=== PATIENT | female | born 1945 | race African-American/Black ===

== ENCOUNTER 2017-01-23 04:06 | Day surgery (SDC) | payer MEDICARE, OTHER ==
[2017-01-17 11:14] LABS: HEMATOCRIT 41.3 % (36.0-48.0); HEMOGLOBIN 13.9 g/dL (12.0-16.0)
[2017-01-17 11:32] LABS: CALCIUM, SERUM 8.7 MG/DL (8.5-10.4); CHLORIDE, SERUM 110 MMOL/L (96-112); CO2 (CARBON DIOXIDE) 27 MMOL/L (24-34); CREATININE 1.04 MG/DL (0.55-1.02); GFR AFRICAN AMERICAN 63 ML/MIN (>=60); GFR NON AFRICAN AMERICAN 55 ML/MIN (>=60); POTASSIUM, SERUM 3.3 MMOL/L (3.5-5.3); SODIUM, SERUM 144 MMOL/L (135-148)
[2017-01-17 11:35] LABS: BUN (BLOOD UREA NITROGEN) 17 MG/DL (6-23); GLUCOSE, SERUM 128 MG/DL (60-99)
--- NOTE | ~2017-01-23 | OP ---
Record Of Operation [facility] [address] [place]. [address] NAME: AJCK SHAHID : 49 STATUS : [facility]#: [id number] AGE: 71 ADM/REG DATE : 01/23/17 MR#: [id number] REPORT SERV DATE: 01/23/17 DICTATED BY: DINORA MORAN DATE: 01/23/17 REPORT STATUS : Draft TRANSCRIBED BY: SYD DATE: 01/23/17 DATE OF PROCEDURE: 01/23/2017 PREOPERATIVE DIAGNOSIS: Right rotator cuff tear, biceps tendinitis, impingement, acromioclavicular pain. POSTOPERATIVE DIAGNOSIS: Right rotator cuff tear, biceps tendinitis, impingement, acromioclavicular pain. PROCEDURE: Right rotator cuff repair, biceps tenodesis, subacromial decompression, AC resection, extensive debridement. COMPLICATIONS: None. ANESTHESIA: General endotracheal with regional block per Anesthesia. INDICATIONS: This 71-year-old female presented with severe shoulder pain. She had a full- thickness rotator cuff tear and had failed nonoperative management. She wished to proceed with operative intervention after discussion of above. PROCEDURE IN DETAIL: The patient induced in supine position. She was taken to the beach- chair position with care to maintain the cervical lordosis. A time-out protocol was enforced. Ancef was administered. Posterolateral portal was created for diagnostic arthroscopy, which revealed well-preserved cartilaginous surfaces, severe tearing, and maceration of the biceps tendon with hourglassing and some mild subluxation. Full-thickness tear of the supraspinatus with an 80% tear of the infraspinatus, but the bursal side was intact. Type 3 acromion and severe osteoarthritis of the AC joint. Extensive debridement: A 5.5 cannula was localized with an outside-in spinal technique. We debrided the fibrillating collagenous or collagen from the biceps. We transected the biceps root and allowed it to retract. We debrided the superior labrum of synovitis superiorly, posteriorly, and anteriorly. We took down the tendon remnants, which were on the greater tuberosity and burred it down to a bleeding bony surface. We performed a microfracture of the tuberosity to optimize healing. We freshened the tendon ends as this was a bilaminar tear. Subacromial decompression: The arthroscopic cannula was then removed from the posterior shoulder and redirected in the subacromial space. The metal trocar was inserted and the cannula was advanced out the anterior superior portal creating an outflow portal with outside in technique. A lateral portal was then created after spinal needle localization and a skin incision was made with an 11-blade. A large 5-5 shaver was then introduced into the joint from lateral and its tip was well visualized in the bursa. A bursectomy was performed going from lateral to medial allowing visualization of the rotator cuff and undersurface of the acromion. Coagulation was achieved with a 90-degree electrothermal Record Of Operation [facility] [address] [facility] [place]. [address] NAME: JACK SHAHID : 49 STATUS : [facility]#: [id number] AGE: 71 ADM/REG DATE : 01/23/17 MR#: [id number] REPORT SERV DATE: 01/23/17 DICTATED BY: DINORA MORAN DATE: 01/23/17 REPORT STATUS : Draft TRANSCRIBED BY: SYD DATE: 01/23/17 device and the undersurface of the CA ligament was recessed with the tissue ablator. Bur was then introduced laterally and acromioplasty was performed smoothing the acromion from a type I morphology. This was begun laterally and advanced medially. The AC joint was then checked for spurs and these were smoothed. The soft tissue decompression was carried out anteriorly, laterally and superiorly. The scope was then withdrawn and placed into the lateral portal and the cutting-block technique was used with the instrumentation from posterior to assure that a perfect acromioplasty had been performed. Decompression then underwent the final check by forward flexing the arm again to check for impingement. Cuff repair: We placed two helical anal anchors medially, one double loaded and one triple loaded on the medial row. We microfractured the tuberosity. We placed mattress sutures through the cuff and tied these medially. We then used two SwiveLocks laterally for a four anchor transosseous equivalent cuff repair. Biceps tenodesis: We then forward flexed, externally rotated the arm. We opened up the biceps sheath and extensively debrided the synovitis from around the biceps tendon, and in the suprapectoral location, we placed a double loaded Lupine anchor and then tenodesed the biceps with Bravo-Artis sutures in the biceps groove. Attention was then turned to the resection of the AC joint. Looking from posteriorly, the compartment of the AC joint was entered and a laterally placed tissue ablator was utilized to debride fat and coagulate bleeders under the AC joint. A bur was introduced and the undersurface of the AC joint was co-planed from lateral to medial. Palpation on the clavicle allowed visualization of the AC joint and disc. A spinal needle directed from anteriorly allowed localization of the AC joint and a 12-flute bur was introduced anteriorly. This bur was utilized to resect approximately 1 cm on the clavicle from anterior to posterior. 2mm were then taken off the acromial side. Care was taken to insure that a level cut was made at the anterior and posterior junctions of the AC joint and the anterior and posterior AC ligaments were recessed prior to this with a tissue ablator preserving their structure. The scope was then placed in the lateral portal and again the AC joint was visualized anteriorly and posteriorly with inferiorly directed pressure insuring an adequate superior decompression. The posterior aspect of the joint was then checked with a scope in the anterior portal and an accessory posterior portal was created and utilized to recess the posterior spur with a bur. No yiuv-[id number]-[id number] contact at the AC joint was present after resection. Scope was withdrawn. The portals were closed Monocryl and Steri-Strips were applied. The patient tolerated the procedure well and was sent to PACU in stable condition. POSTOPERATIVE PLAN: Large cuff protocol. BSS/MODL Dinora Moran M.D. Record Of Operation [address] [address] NAME: JACK SHAHID : 49 STATUS : [facility] PAT#: [id number] AGE: 71 ADM/REG DATE : 01/23/17 MR#: [id number] REPORT SERV DATE: 01/23/17 DICTATED BY: DINORA MORAN DATE: 01/23/17 REPORT STATUS : Draft TRANSCRIBED BY: MODL DATE: 01/23/17 / [id number] CC: Daniel Fitzpatrick N.P.
[~2017-01-23 04:06] MED LIST: *UNABLE1; ACCUNEB INH; ACET500CAP PO; ADVAIR250 INH; ANOROELLIPTA INH; AVELOX400 PO; BENTYL10 PO; CALCIUM PO; CALTRA600D PO; CALTRAT600 PO; CARDCD180 PO; DIL2TAB PO; DIL4TAB PO; DSS PO; DULERA 200 MCG/13 GM INH; DUONEB INH; ENDOCET1 TA1 PO; ENDOCET1 TAB PO; FLEX PO; FLONASE NAS; FLUTICASONE INH; GABAPENTIN; HCTZ12.5 PO; HYDROCHLOROT12.5 MG PO; HYZAAR 50/12.51 TAB PO; IRON325 MG PO; KAPIDEX60 MG PO; LEVAQUIN750 MG PO; LOM PO; METHOC500B; METHOC500B OR; METHOC500B PO; METHOC750B PO; MICRO-K10 MEQ PO; MUCINEX1200 MG PO; MULTIVITAMI1 PO; NEUR100 PO; NEUR300 PO; NEXIUM40 PO; NORV10 PO; NORV5 PO; OTC CALCIUM PO; OXECTA7.5 MG PO; PCET PO; PR25 PO; PRILO PO; PRILOSEC40 MG PO; PROAIR HFA INH; REG PO; REG5 PO; RX CREAM; SALMETEROL INH; SONATA10 MG PO; SPIRIVA INH; SUCR PO; T PO; TESS PO; TRAZ50 PO; ULTRAM50 PO; VENTOLIN HFA INH; VITD PO; VOLTAREN1 % TOP; ZANTAC150 MG PO; ZOFRANODT8 PO; ZOVI200CAP PO; [UNRECOGNIZED DRUG - OTHER] IV; [UNRECOGNIZED DRUG - REMARK]; [UNRECOGNIZED DRUG - REMARK] INH; [UNRECOGNIZED DRUG - REMARK] PO
[2017-04-19] MEDS ORDERED: TESSALON200 MG PO (01:46)
[2017-04-19] MEDS ORDERED: DUONEB INH (01:46)
[2017-04-19] MEDS ORDERED: DIL2TAB PO (01:47)
[2017-04-19] MEDS ORDERED: PROAIR HFA INH (01:49)
[2017-04-19] MEDS ORDERED: CARAFATE (01:51)
[2017-04-19] MEDS ORDERED: ANOROELLIPTA INH (01:51)
[2017-04-19] MEDS ORDERED: HYZAAR 50/12.51 TAB PO (01:52)
[2017-04-19] MEDS ORDERED: PRILOSEC40 MG PO (01:53)
[2017-04-19] MEDS ORDERED: ZOL100 PO (01:53)
[2017-04-19] MEDS ORDERED: NEUR300 PO (01:53)
[2017-04-19] MEDS ORDERED: *UNABLE1 (01:54)
[2017-04-20] MEDS ORDERED: ZOFRAN4 PO (10:30)
[2017-04-20] MEDS ORDERED: PR25 PO (10:31)
[2017-04-20] MEDS ORDERED: TRAZ50 PO (10:31)
[2017-04-28] MEDS ORDERED: FLAG500TAB PO (11:57)
[2017-04-28] MEDS ORDERED: CIP5 PO (11:57)
[2017-04-28] MEDS ORDERED: PEPTO BISMOL LIQ1 ML PO (11:58)
[2017-04-28] MEDS ORDERED: LOM PO (11:59)
== END 2017-01-23 11:17 | disposition home or self-care (01) ==
LOC: SDC 04:06
PROVIDERS: Orthopaedic Surgery Sports Medicine
PROC: 0LQ14ZZ Repair Right Shoulder Tendon, Percutaneous Endoscopic Approach (ICD-10-PCS; principal; 2017-01-23 05:45)
PROC: 0LS14ZZ Reposition Right Shoulder Tendon, Percutaneous Endoscopic Approach (ICD-10-PCS; 2017-01-23 05:45)
DX: M75.101 Unspecified rotator cuff tear or rupture of right shoulder, not specified as traumatic (principal); M75.21 Bicipital tendinitis, right shoulder; M25.811 Other specified joint disorders, right shoulder; I10 Essential (primary) hypertension; J44.9 Chronic obstructive pulmonary disease, unspecified; J45.909 Unspecified asthma, uncomplicated; M19.90 Unspecified osteoarthritis, unspecified site; K21.9 Gastro-esophageal reflux disease without esophagitis; K31.84 Gastroparesis; Z90.710 Acquired absence of both cervix and uterus; Z98.890 Other specified postprocedural states; B00.9 Herpesviral infection, unspecified; F32.9 Major depressive disorder, single episode, unspecified; M81.0 Age-related osteoporosis without current pathological fracture; M41.9 Scoliosis, unspecified; Z90.49 Acquired absence of other specified parts of digestive tract; K58.9 Irritable bowel syndrome, unspecified; F12.90 Cannabis use, unspecified, uncomplicated; F17.210 Nicotine dependence, cigarettes, uncomplicated; Z88.0 Allergy status to penicillin; Z88.5 Allergy status to narcotic agent; Z88.6 Allergy status to analgesic agent; Z79.899 Other long term (current) drug therapy; Z79.51 Long term (current) use of inhaled steroids
CPT/HCPCS: 80048; 85014; 85018; 85025; 93005; C1713; J0330; J0690; J2250; J2710; J2795; J3010

== ENCOUNTER 2017-01-25 21:39 | Inpatient (IN) | payer MEDICARE, OTHER ==
--- NOTE | ~2017-01-25 | HP ---
History And Physical [address] [place]. [address] NAME: JACK SHAHID : 49 STATUS : [facility] PAT#: [id number] AGE: 71 ADM/REG DATE : 01/25/17 MR#: [id number] REPORT SERV DATE: 01/26/17 DICTATED BY: PALMA MCMAHAN DATE: 01/26/17 REPORT STATUS : Draft TRANSCRIBED BY: MODGavin DATE: 01/26/17 DATE OF ADMISSION: 01/25/2017 CHIEF COMPLAINT: A 71-year-old female presenting with intractable nausea and vomiting, and evidence of hypokalemia. HISTORY OF PRESENTING ILLNESS: The patient's history was obtained through careful interview with the patient and daughter coupled with review of [facility] and [facility] medical records. The patient on 01/23/2017, underwent a right rotator cuff repair, seemed to recover well and was able to be discharged on the same day. When she returned home, she began to develop increasing nausea, vomiting, and for about 24 hours had diarrhea as well. She describes a polyuria, but inability to take food in. Her bowel movements have improved in the last 24 hours, but she has had persistent nausea and vomiting. Has not had any real food intake in about 48 hours now. She was staggering, weak, lightheaded, and then the family realized she had to come into the hospital for further evaluation. She has no residual right shoulder pain after her surgery. She denies any abdominal pain at this time. She has a slight nonproductive cough and shortness of breath. No chest pain. At this time, she is complaining of no pain at all. REVIEW OF SYSTEMS: Otherwise, a 14-point review of systems was obtained and was negative. PAST MEDICAL HISTORY: 1. Peptic ulcer disease seen by Dr. Keyes. 2. Severe COPD. 3. Coronary artery disease. 4. Elevated cholesterol. 5. Scoliosis. 6. Genital herpes. 7. Depression. 8. Seizure disorder. 9. Fibrocystic breast disease. PAST SURGICAL HISTORY: 1. Hysterectomy with oophorectomy. 2. A partial gastric resection for peptic ulcer disease. 3. Appendectomy. History And Physical [address] [address] NAME: JACK SHAHID : 49 STATUS : [facility] PAT#: [id number] AGE: 71 ADM/REG DATE : 01/25/17 MR#: [id number] REPORT SERV DATE: 01/26/17 DICTATED BY: PALMA MCMAHAN DATE: 01/26/17 REPORT STATUS : Draft TRANSCRIBED BY: SYD DATE: 01/26/17 4. Lumbar spine surgery. 5. Cervical spine surgery. 6. Right rotator cuff repair. ALLERGIES: TO PENICILLIN, ASPIRIN, AND CODEINE. SOCIAL HISTORY: Has been living with her grandson. She quit smoking. No alcohol abuse. She has a history of smoking occasional marijuana. She has a previous history of cocaine abuse, but has quit. She has total of three children. She is . She previously worked in a day care. FAMILY HISTORY: Father with cancer. Mother with stroke. Brother with COPD. Strong family history of heart disease as well. CURRENT MEDICATIONS: 1. Calcium. 2. Vitamin D. 3. Neurontin 300 mg p.o. t.i.d. 4. Dilaudid 2 mg to 4 mg p.o. q.4 hours p.r.n. 5. Losartan/hydrochlorothiazide 50/12.5 mg p.o. daily. 6. Omeprazole 40 mg daily. 7. Zoloft 100 mg daily. 8. Sucralfate 1 g before each meal and at bedtime. 9. Anoro Ellipta inhale daily. PHYSICAL EXAMINATION: VITAL SIGNS: Temperature 97.7, pulse 88, blood pressure 187/101, respiratory rate 16, and O2 saturation 95% on room air. GENERAL: An ill-appearing female, in evidence of distress secondary to nausea. HEENT: Pupils equal, round, and reactive to light. No conjunctival pallor. No scleral icterus. Nares are patent. Oropharynx is clear of obstruction. Very dry mucous membranes. NECK: Trachea midline. No thyromegaly. LYMPH: No cervical lymphadenopathy. No supraclavicular lymphadenopathy. RESPIRATORY: Clear to auscultation at bases. No wheezes, rales, or rhonchi. Normal respiratory effort. CARDIOVASCULAR: Regular rate and rhythm. No murmurs, rubs, or gallops. No current extremity edema is appreciated. ABDOMEN: Quite distended by exam with tympanic resonance, diminished bowel tones, but nontender throughout examination. No hepatosplenomegaly. DERMATOLOGICAL: Warm and dry extremities. No pallor. No cyanosis. PSYCHIATRIC: Normal affect. Good mood. Alert and oriented x3. LABORATORY DATA: White blood cell count 13.4, hemoglobin 15, hematocrit 42, and platelets 236. Sodium 140, potassium 2.8, chloride 101, bicarb 18, BUN 14, creatinine 1.0, and glucose 77. History And Physical [address] [address] NAME: JACK SHAHID : 49 STATUS : [facility] PAT#: [id number] AGE: 71 ADM/REG DATE : 01/25/17 MR#: [id number] REPORT SERV DATE: 01/26/17 DICTATED BY: PALMA MCMAHAN DATE: 01/26/17 REPORT STATUS : Draft TRANSCRIBED BY: SYD DATE: 01/26/17 Liver enzymes within normal limits. Urinalysis negative for infection. ASSESSMENT AND PLAN: 1. Intractable vomiting because of distended abdomen and elevated white blood cell count, I would like to check a CT scan of the abdomen and pelvis. For now we will provide supportive care. 2. Hypokalemia. We will replace potassium. Check magnesium. Hold hydrochlorothiazide. Check telemetry. 3. Chronic obstructive pulmonary disease. Place on Duo nebulizers. KAITL/SYD Palma Mcmahan M.D. / [id number] CC: Allan Lo Jr, MD Jimmy Davis, M.D.
--- NOTE | ~2017-01-25 | DS ---
Discharge Summary [facility] [address] [place]. [address] NAME: JACK SHAHID : 49 STATUS : DIS IN PAT#: [id number] AGE: 71 ADM/REG DATE : 01/26/17 MR#: [id number] REPORT SERV DATE: 01/28/17 DICTATED BY: EL SIERRA DATE: 01/27/17 REPORT STATUS : Draft TRANSCRIBED BY: MODL DATE: 01/27/17 ADMISSION DATE: 01/26/2017 DISCHARGE DATE: 01/27/2017 PRINCIPAL DIAGNOSES: Intractable vomiting due to metabolic acidosis due to starvation ketosis. Also hyperkalemia, COPD, and recent shoulder surgery. HISTORY OF PRESENT ILLNESS: Please see Dr. Maurice's dictation on 01/25/2017. HOSPITAL COURSE: Admitted with intractable nausea and vomiting associated with a gastroenteritis episode which occurred following a shoulder surgery. In any event, she had a negligible p.o. for several days. She was found to be very ketotic with a positive anion gap metabolic acidosis, severe hypokalemia. The patient received dextrose, potassium bicarbonate infusion with rapid resolution of the metabolic abnormalities, rapid improvement in her nausea, and ability to advance her diet to the point she was able to be discharged on 01/27/2017, continuing her home medications, following up with Altagracia Ramos in one to two weeks, and home medications were unchanged. BLAYNE/SYD El Sierra M.D. / [id number] CC: Daniel Arias N.P.
[2017-01-25 19:23] LABS: ASCORBIC ACID (UR NOT ORDER) NEG (NEG); BILIRUBIN, URINE NEGATIVE (NEG); ER URINALYSIS TAT 0 Hrs 10 Mins; KETONE, URINE 80 MG/DL (NEG); LEUKOCYTE ESTERASE(NOT OR NEG (NEG); NITRITE (URINE) NEG (NEG); WBC (NOT ORDERED) (RFLEX) < 1 (0-5)
[2017-01-25 19:24] LABS: BASOPHILS 0.1 %; BASOPHILS ABSOLUTE 0.02 10/3/uL (0.0-0.16); EOSINOPHILS 0 %; ER CBC TAT 0 Hrs 11 Mins; HEMOGLOBIN 14.9 g/dL (12.0-16.0); IMMATURE GRANULOCYTES 0.3 %; IMMATURE GRANULOCYTES ABSOLUTE 0.04 10/3/uL (0.0-0.11); LYMPHOCYTES ABSOLUTE 1.21 10/3/uL (0.67-4.30); MANUAL DIFF NO %; MEAN CORPUS HGB CONC 35.5 g/dL (32.0-36.0); MEAN CORPUSCULAR HEMOGLOB 30.5 pg (26.0-34.0); MEAN CORPUSCULAR VOLUME 86.1 fL (80-100); MONOCYTES 6.9 %; MONOCYTES ABSOLUTE 0.92 10/3/uL (0.21-1.20); NEUTROPHILS 83.7 %; NEUTROPHILS ABSOLUTE 11.24 10/3/uL (2.02-8.40); PLATELET COUNT 236 10/3/uL (150-400); RBC DISTRIBUTION WIDTH 14.8 % (12.0-16.0); RED CELL COUNT 4.88 10/6/uL (4.0-5.6); WHITE BLOOD CELLS 13.4 10/3/uL (4.5-10.5)
[2017-01-25 19:41] LABS: ALBUMIN 3.4 G/DL (3.5-5.0); BUN (BLOOD UREA NITROGEN) 14 MG/DL (6-23); CALCIUM, SERUM 9.3 MG/DL (8.5-10.4); CHLORIDE, SERUM 101 MMOL/L (96-112); GFR AFRICAN AMERICAN 67 ML/MIN (>=60); GFR NON AFRICAN AMERICAN 57 ML/MIN (>=60); SGOT(AST) 45 U/L (5-40); SGPT(ALT) 22 U/L (5-65); SODIUM, SERUM 140 MMOL/L (135-148); TOTAL PROTEIN 8.2 G/DL (6.0-8.5)
[2017-01-25 19:45] LABS: A/G RATIO 0.7 (0.7-1.9); ALKALINE PHOSPHATASE 128 U/L (45-117); CO2 (CARBON DIOXIDE) 18 MMOL/L (24-34); GLOBULIN 4.8 G/DL (2.5-4.1); GLUCOSE, SERUM 77 MG/DL (60-99); POTASSIUM, SERUM 2.8 MMOL/L (3.5-5.3); TOTAL BILIRUBIN 0.8 MG/DL (0-1.2)
[2017-01-25] MEDS ORDERED: MINOCIN100 PO (21:48)
[2017-01-25] MEDS ORDERED: HYZAAR 50/12.51 TAB PO (21:49)
[2017-01-25] MEDS ORDERED: ZOL100 PO (21:49)
[2017-01-25] MEDS ORDERED: NEUR300 PO (21:50)
[2017-01-25] MEDS ORDERED: ANOROELLIPTA INH (21:50)
[2017-01-25] MEDS ORDERED: SUCR PO (21:50)
[2017-01-25] MEDS ORDERED: PRILOSEC40 MG PO (21:51)
[2017-01-25] MEDS ORDERED: CALTRA600D PO (21:51)
[2017-01-25] MEDS ORDERED: DIL2TAB PO (21:53)
[2017-01-26 05:43] LABS: BASOPHILS 0.2 %; BASOPHILS ABSOLUTE 0.02 10/3/uL (0.0-0.16); EOSINOPHILS 0 %; HEMATOCRIT 42.7 % (36.0-48.0); HEMOGLOBIN 14.5 g/dL (12.0-16.0); IMMATURE GRANULOCYTES 0.6 %; IMMATURE GRANULOCYTES ABSOLUTE 0.08 10/3/uL (0.0-0.11); LYMPHOCYTES 12.5 %; LYMPHOCYTES ABSOLUTE 1.58 10/3/uL (0.67-4.30); MEAN CORPUSCULAR HEMOGLOB 29.7 pg (26.0-34.0); MEAN CORPUSCULAR VOLUME 87.3 fL (80-100); MONOCYTES 6.6 %; MONOCYTES ABSOLUTE 0.83 10/3/uL (0.21-1.20); NEUTROPHILS 80.1 %; NEUTROPHILS ABSOLUTE 10.11 10/3/uL (2.02-8.40); PLATELET COUNT 231 10/3/uL (150-400); RBC DISTRIBUTION WIDTH 14.9 % (12.0-16.0); RED CELL COUNT 4.89 10/6/uL (4.0-5.6); WHITE BLOOD CELLS 12.6 10/3/uL (4.5-10.5)
[2017-01-26 05:45] LABS: MANUAL DIFF NO %
[2017-01-26 05:47] LABS: INTERNATIONAL NORMAL RATI 1.3 UNITS (-); PARTIAL THROMBO TIME 36.1 SEC (22.5-37.2); PROTIME (NOT ORD) 15.7 SEC (12.0-14.5)
[2017-01-26 06:12] LABS: A/G RATIO 0.7 (0.7-1.9); ALBUMIN 3.1 G/DL (3.5-5.0); BUN (BLOOD UREA NITROGEN) 15 MG/DL (6-23); CALCIUM, SERUM 8.9 MG/DL (8.5-10.4); CHLORIDE, SERUM 106 MMOL/L (96-112); CREATININE 0.98 MG/DL (0.55-1.02); GFR AFRICAN AMERICAN 68 ML/MIN (>=60); GFR NON AFRICAN AMERICAN 59 ML/MIN (>=60); GLOBULIN 4.2 G/DL (2.5-4.1); GLUCOSE, SERUM 81 MG/DL (60-99); SGOT(AST) 33 U/L (5-40); SGPT(ALT) 21 U/L (5-65); SODIUM, SERUM 142 MMOL/L (135-148); TOTAL BILIRUBIN 0.8 MG/DL (0-1.2); TOTAL PROTEIN 7.3 G/DL (6.0-8.5)
[2017-01-26 06:18] LABS: ALKALINE PHOSPHATASE 112 U/L (45-117); CO2 (CARBON DIOXIDE) 14 MMOL/L (24-34); POTASSIUM, SERUM 2.9 MMOL/L (3.5-5.3); TROPONIN I 0.08 NG/ML (<0.05); ULTRASENSITIVE TSH 0.442 MCIU/ML (0.358-3.740)
[2017-01-26 08:50] LABS: ALLENS TEST Pos; CARBOXYHEMOGLOBIN 1.4 % (0-3); HCO3 (ACTUAL BICARBONATE) 16.6 MEQ/L (23-27); HEMOBLOGIN CONTENT 13.8 G/DL (12-16); INSTRUMENT SERIAL # 8087; METHEMOGLOBIN 0.3 % (0-3); O2 CONTENT 18.1 VOL% (18-24); PCO2 (CO2 TENSION) 28 MMHG (35-45); PO2 (O2 TENSION) 75 MMHG (79-93); SAMPLE Arterial; pH 7.39 (7.37-7.43)
[2017-01-26 12:15] LABS: OSMOLALITY, URINE 580 MOSM/KG (50-1200)
[2017-01-26 12:18] LABS: SODIUM, URINE 90 MEQ/L
[2017-01-26 18:18] LABS: BUN (BLOOD UREA NITROGEN) 13 MG/DL (6-23); CALCIUM, SERUM 8.8 MG/DL (8.5-10.4); CHLORIDE, SERUM 106 MMOL/L (96-112); CREATININE 0.91 MG/DL (0.55-1.02); GFR AFRICAN AMERICAN 75 ML/MIN (>=60); GFR NON AFRICAN AMERICAN 64 ML/MIN (>=60); POTASSIUM, SERUM 3.1 MMOL/L (3.5-5.3); SODIUM, SERUM 143 MMOL/L (135-148)
[2017-01-26 18:20] LABS: CO2 (CARBON DIOXIDE) 21 MMOL/L (24-34); GLUCOSE, SERUM 111 MG/DL (60-99)
[2017-01-27 05:18] LABS: BUN (BLOOD UREA NITROGEN) 12 MG/DL (6-23); CALCIUM, SERUM 8.6 MG/DL (8.5-10.4); CHLORIDE, SERUM 103 MMOL/L (96-112); CREATININE 0.93 MG/DL (0.55-1.02); GFR AFRICAN AMERICAN 73 ML/MIN (>=60); GFR NON AFRICAN AMERICAN 63 ML/MIN (>=60); GLUCOSE, SERUM 111 MG/DL (60-99); SODIUM, SERUM 141 MMOL/L (135-148)
[2017-01-27 05:42] LABS: CO2 (CARBON DIOXIDE) 31 MMOL/L (24-34); POTASSIUM, SERUM 2.9 MMOL/L (3.5-5.3)
[2017-01-27 06:50] LABS: BE (BASE EXCESS) 5.7 MEQ/L (0 +/- 2.5); CARBOXYHEMOGLOBIN 1.4 % (0-3); HCO3 (ACTUAL BICARBONATE) 29.7 MEQ/L (23-27); INSTRUMENT SERIAL # 8083; PCO2 (CO2 TENSION) 41 MMHG (35-45); PO2 (O2 TENSION) 64 MMHG (79-93); pH 7.48 (7.37-7.43)
[2017-01-27 06:51] LABS: HEMOBLOGIN CONTENT 13.2 G/DL (12-16); METHEMOGLOBIN 0.1 % (0-3); O2 CONTENT 17.1 VOL% (18-24); OPERATOR ID 17589; SAMPLE Arterial
[2017-01-27] MEDS ORDERED: ZOFRAN4 PO (13:01)
[2017-04-19] MEDS ORDERED: TESSALON200 MG PO (01:46)
[2017-04-19] MEDS ORDERED: DUONEB INH (01:46)
[2017-04-19] MEDS ORDERED: DIL2TAB PO (01:47)
[2017-04-19] MEDS ORDERED: PROAIR HFA INH (01:49)
[2017-04-19] MEDS ORDERED: ANOROELLIPTA INH (01:51)
[2017-04-19] MEDS ORDERED: CARAFATE (01:51)
[2017-04-19] MEDS ORDERED: HYZAAR 50/12.51 TAB PO (01:52)
[2017-04-19] MEDS ORDERED: NEUR300 PO (01:53)
[2017-04-19] MEDS ORDERED: PRILOSEC40 MG PO (01:53)
[2017-04-19] MEDS ORDERED: ZOL100 PO (01:53)
[2017-04-19] MEDS ORDERED: *UNABLE1 (01:54)
[2017-04-20] MEDS ORDERED: ZOFRAN4 PO (10:30)
[2017-04-20] MEDS ORDERED: TRAZ50 PO (10:31)
[2017-04-20] MEDS ORDERED: PR25 PO (10:31)
[2017-04-28] MEDS ORDERED: CIP5 PO (11:57)
[2017-04-28] MEDS ORDERED: FLAG500TAB PO (11:57)
[2017-04-28] MEDS ORDERED: PEPTO BISMOL LIQ1 ML PO (11:58)
[2017-04-28] MEDS ORDERED: LOM PO (11:59)
== END 2017-01-27 19:13 | disposition home or self-care (01) | DRG 641 ==
LOC: ER 21:39 → CDU1 22:05
PROVIDERS: Emergency Medicine; Internal Medicine
DX: E87.6 Hypokalemia (principal); E87.2 Acidosis; K52.9 Noninfective gastroenteritis and colitis, unspecified; J44.9 Chronic obstructive pulmonary disease, unspecified; K27.9 Peptic ulcer, site unspecified, unspecified as acute or chronic, without hemorrhage or perforation; G40.909 Epilepsy, unspecified, not intractable, without status epilepticus; I25.10 Atherosclerotic heart disease of native coronary artery without angina pectoris; K21.9 Gastro-esophageal reflux disease without esophagitis; M19.90 Unspecified osteoarthritis, unspecified site; Z88.0 Allergy status to penicillin; K31.84 Gastroparesis; Z88.6 Allergy status to analgesic agent; Z88.5 Allergy status to narcotic agent; Z98.890 Other specified postprocedural states; Z90.710 Acquired absence of both cervix and uterus; E78.00 Pure hypercholesterolemia, unspecified; Z87.891 Personal history of nicotine dependence
CPT/HCPCS: 36600; 74000; 74176; 80048; 80053; 81001; 82150; 82436; 82805; 83036; 83690; 83735; 83935; 84132; 84133; 84300; 84443; 84484; 85025; 85610; 85730; 94640; 99285; A9270-GY; J1170; J2405; J2765; J3480